=== PATIENT | female | born 1980 | race Hispanic/Latino ===

== ENCOUNTER → 2019-05-02 10:31 | Outpatient (CLI) | payer OTHER, SELFPAY ==
--- NOTE | ~2019-05-02 | US_ITS ---
EXAMINATION: US OB >= 14 weeks Fetus DATE: 05/02/2019 11:43 INDICATION: Second trimester anatomic survey TECHNIQUE: Real-time ultrasound of the pelvis was performed. COMPARISON: None. FINDINGS: There is a single living fetus in vertex presentation. The placenta is anterior and 7.7 cm from the i nternal cervical os. heart rate is 143 beats per minute (bpm). cardiac activity and feta l movement are noted. The amniotic fluid index is subjectively normal. The following anatomy was identified as normal: 4 chamber heart 3 vessel cord cord insertion kidneys urinary bladder stomach spine diaphragm ventricles cisterna magna cerebellum The following biometric data were obtained: Biparietal diameter (BPD): 4.3 cm; head circumference (HC): 16.3 cm; abdominal circumference (AC): 13 .9 cm; femur length (FL): 2.8 cm. These measurements are concordant. Estimated weight is 274 g +/- 41 g, which correlates with the 21st percentile when 09/22/2019 is used as estimated date of delivery. As single measurements, these parameters are each equal to the following estimated gestational ages w ith ranges of +/- 2 standard deviations: BPD: 19 weeks 1 days ( 17 weeks 3 days - 20 weeks 6 days). HC: 19 weeks 0 days ( 17 weeks 4 days - 20 weeks 4 days). AC: 19 weeks 2 days ( 17 weeks 2 days - 21 weeks 3 days). FL: 18 weeks 6 days ( 17 weeks 0 days - 20 weeks 5 days). estimated gestational age based solely on measurements from this exam is 19 weeks 1 days +/- 1 weeks 2 days. IMPRESSION: 1. Single living fetus in vertex presentation. 2. Estimated weight is 274 g +/- 41 g, which correlates with the 21st percentile when 09/22/2019 is used as estimated date of delivery. Reviewed, dictated and finalized at location A. DERING CLERK IMPRESSION: 1. Single living fetus in vertex presentation. 2. Estimated weight is 274 g +/- 41 g, which correlates with the 21st per centile when 09/22/2019 is used as estimated date of delivery.
== END ==
PROVIDERS: Visit Provider Obstetrics & Gynecology Gynecology
DX: Z36.9 Encounter for antenatal screening, unspecified (principal); Z3A.19 19 weeks gestation of pregnancy
CPT/HCPCS: 76805

== ENCOUNTER 2019-06-25 08:50 | Outpatient (RCR) | payer OTHER, SELFPAY ==
[2019-06-25 10:11] LABS: Hematocrit 36.3 % (37.0-47.0); Hemoglobin 12.3 g/dL (12.0-15.0)
[2019-06-25 10:24] LABS: Glucose 1 Hour PP 50gm Dose 93 mg/dL
[2019-06-25 10:56] LABS: Vitamin D 25 Hydroxy 43.1 ng/mL
[2019-06-25 11:04] LABS: HIV 1/2 Ab P24 Ag Result Negative (Negative)
[2019-06-25] MEDS: RHO(D) IMMUNE GLOBULIN 300 MCG SYRINGE IM (15:06)
== END 2019-09-23 23:59 | disposition home or self-care (01) ==
LOC: ANHLAB 08:50
PROVIDERS: Visit Provider Obstetrics & Gynecology Gynecology
DX: Z29.13 Encounter for prophylactic Rho(D) immune globulin (principal); Z11.4 Encounter for screening for human immunodeficiency virus [HIV]; O36.0990 Maternal care for other rhesus isoimmunization, unspecified trimester, not applicable or unspecified; Z3A.00 Weeks of gestation of pregnancy not specified
CPT/HCPCS: 36415; 82306; 82947; 85014; 85018; 85461; 86703; 90384; 96372; G0432; J2790

== ENCOUNTER 2019-09-16 06:35 | Inpatient (IN) | payer OTHER, SELFPAY ==
[2019-09-16] VITALS (76 sets, daily range): BP systolic 109–139; BP diastolic 63–108; PULSE 75–189; RESP 18; TEMP 36.6–37.2; O2SAT 94–100; BMI 28.2
[2019-09-16 07:17] LABS: Basophils Percent Auto 0.4 % (0.2-1.2); Eosinophils Absolute Auto 0.1 K/mm3 (0-0.3); Eosinophils Percent Auto 1.1 % (0-4.4); Hematocrit 38.5 % (37.0-47.0); Hemoglobin 13.2 g/dL (12.0-15.0); Immature Granulocyte Absolute 0.08 K/mm3 (0.00-0.031); Immature Granulocyte Percent A 1.4 % (0-0.5); Lymphocytes Absolute Auto 2.13 K/mm3 (0.9-3.2); Lymphocytes Percent Auto 38.5 % (18.3-44.2); Mean Corpuscular HGB Conc 34.3 g/dl (32-36); Mean Corpuscular Hemoglobin 32.2 pg (26-34); Mean Corpuscular Volume 93.9 fl (80-100); Mean Platelet Volume 11.3 fl (7.4-10.4); Monocytes Absolute Auto 0.4 K/mm3 (0.1-0.6); Monocytes Percent Auto 7.4 % (2.6-8.5); Neutrophils Absolute Auto 2.8 K/mm3 (1.3-6.7); Neutrophils Percent Auto 51.2 % (45.5-73.1); Platelet Count Result 210 k/mm3 (150-375); Red Cell Distribution Width 14.4 % (11.5-14.5); White Blood Count 5.5 K/mm3 (4.5-10.0)
--- NOTE | 2019-09-16 07:20 | LDADM ---
This patient, Kathy Mei, was admitted to Labor/Delivery/Recovery 107 on 09/16/19 at 06:35. Plans for labor, pain management and were discussed with patient. Patient/family oriented to hospital policies and general routines including ID bracelet, bed and alarms, visiting hours, pain management, procedures, bathroom and other care routines, personal items, smoking policy, room service/diet and guest tray routines, security routines, and visiting hours. Patient/Family are encouraged to report perceived risks to care and to ask questions if they do not understand what they are told or what they should do. See OBIX for further documentation.
[2019-09-16] MEDS: LACTATED RINGERS 1,000 ML 125 ML IV CONT (07:24)
[2019-09-16] MEDS: OXYTOCIN 30 UNITS/NS 500 ML 30 UNITS/500 ML BAG IV CONT (07:26)
--- NOTE | 2019-09-16 11:56 | WPDOBADMIT ---
Obstetrics - Admit Note Admission Note: AROM clear fluid /-2 vertex record reviewed. No pertinent additions to the history and/or any subsequent changes in the physical findings that are not consistent with the expected course of the were found. Additions to the history and/or subsequent changes in the physical findings follow. None.
--- NOTE | 2019-09-16 16:26 | PM.OBPRVD ---
OB - Delivery Note Procedure Delivery date: 09/16/19 Procedure: Induction method: AROM and per pitocin protocol Delivery monitor: external FHT and external uterine Route of delivery: Laceration description: Perineal - 2nd Degree Delivery repair: vicryl Estimated blood loss (mL): 210 Anesthesia type: Local Disposition: observation Complications: Patient had two 10-20 sec episodes of back arching and wiht neck flecking and posturing during two consecutive contractions. FHTS monitored during episodes. Resolved spontaneously patient with a long standing history of seizure disorder with most recent seizure in August. Baby Date of : 09/16/19 Time of : 16:06 Weeks of gestation at delivery: 39 gender: Female Weight (pounds): 6 Weight (ounces): 5 presentation: vertex position: Right Occiput Posterior Placenta delivery description: Spontaneous cord vessel description: 3 Vessels and Clamped/Cut score one minute: 8 score five minutes: 9
[2019-09-16] MEDS: OXYTOCIN 30 UNITS/NS 500 ML 30 UNITS/500 ML BAG 125 UNITS IV CONT (16:47)
[2019-09-16] MEDS: WITCH HAZEL 40 PADS 1 PAD TOPICAL (17:16)
[2019-09-16] MEDS: IBUPROFEN 600 MG TABLET PO (17:16)
[2019-09-16] MEDS: BENZOCAINE 20% AER SPR (*SP) 56 GM CAN 1 SPRAY TOPICAL (17:16)
--- NOTE | 2019-09-16 19:14 | PHAR ---
HOME MED VERIFIED = [facility] [id number] LAMOTRIGINE 100 MG BID
--- NOTE | 2019-09-16 20:22 | OBPPTRN ---
09/16/2019 at 1925. Patient transferred to post room #282 via wheelchair. Support person present. Oriented to unit, room, information board, rooming in, admission packet and security measures. Patient verbalizes understanding.
[2019-09-16] MEDS: PHARMACIST COMMUNICATION ORDER 1 EACH XX (21:10)
[2019-09-17 05:27] LABS: Hemoglobin 11.7 g/dL (12.0-15.0)
[2019-09-17 07:40] VITALS: BP 111/78; PULSE 78; RESP 18; TEMP 36.4; O2SAT 97
--- NOTE | 2019-09-17 10:50 | PC.NURSE ---
Mother is able to independently latch infant with appropriate positioning/alignment. Mother states she has used the nipple shield the first few feedings to assist with latch, she has not used it since and has no issue with latching. Mother states she will supplement at times. She denies any nipple discomfort, is feeding as required and waking to feed if needed. Infant has had several effective feedings in the past 24 hours, and is currently meeting outcomes for weight, output, jaundice and feeding frequencies. Mother states she feels confident to continue effective with supplementation at home. Reviewed transition to breast milk, signs of adequate intake, and engorgement/relief. Instructed to call ICP if intake/output less than required. Reviewed regular medications mother is taking. Information provided per Shannen. Reviewed community resources on the [facility] website and in the Mom/Baby guide. Information on outpatient services provided. Mother has no further questions at this time.
[2019-09-17 11:22] LABS: Rapid Plasma Reagin Non-Reactive (NonReactive)
[2019-09-17] MEDS: RHO(D) IMMUNE GLOBULIN 300 MCG SYRINGE IM (11:29)
[2019-09-18 08:33] VITALS: BP 124/81; PULSE 105; RESP 20; TEMP 36.8
[2019-09-21 00:56] LABS: Lamotrigine Lamictal 2.3 mcg/mL (4.0-18.0)
--- NOTE | 2019-10-09 13:02 | PM.OBDSVD ---
DS: Admitting Diagnosis Admitting Diagnosis Admitting Diagnosis: Encounter for supervision of normal , unspecified, third trimester OB - DS: Summary OB Procedures : NST OB Procedures Intrapartum: Spontaneous Vag Delivery OB Procedures: : None Time Spent with Patient Time attestation: Total time spent providing and/or coordinating discharge services: DS: Data Data Completed and Pending Completed studies during hospitalization: Pending at discharge 09/16/19 16:09 Surgical [PTH] Routine Discharge Plan Discharge Attending physician on discharge: Manoj Kelley Discharging Clinician: Manoj Kelley Patient Disposition: Home, Self-Care Activity: may shower Diet: as tolerated Discharge Instructions: Education: Mom and Baby Guide Given to: Mother Follow-Up: Call your delivering provider's office for an appointment to be seen. Mom and baby should come to the [facility] for the follow-up appointment. Appointment Date/Time: September 18, 2019 at 8:00 am What to expect at your follow-up visit: Physical Assessment Call [phone] if you are unable to keep your appointment time. BREAST CARE: 1. Wear a snug supportive bra. 2. For engorgement discomfort: Breast Feeding: A. Apply warm moist washcloths B. Express milk as needed to relieve engorgement C. Wear loose clothing 3. For sore nipples: A. Identify correct latch-on B. Apply warm moist washcloths before and after nursing C. Air dry nipples after nursing D. May apply Lansinoh cream to nipples EPISIOTOMY/PERINEAL CARE: 1. Until bleeding stops, use your maury bottle after urinating 2. Change your pad frequently throughout the day 3. You may take sitz baths several times a day (fill your bathtub with warm water and soak for 20 minutes.) Do NOT bathe in the water 4. No tub baths until seen by your physician - You may shower ACTIVITY: 1. Rest as much as possible. 2. Do not exercise or lift anything heavier than your baby (such as laundry or other children.) 3. Avoid stairs or driving as much as possible. 4. Do not put anything into the vagina. No douching, tampons, or sexual activity until seen by physician. NOTIFY PHYSICIAN IF YOU HAVE ANY QUESTIONS OR IF ANY OF THE FOLLOWING SYMPTOMS OCCUR: 1. If your stitches become red, swollen, or more painful than what you have experienced in the hospital. 2. If your vaginal bleeding becomes foul smelling. 3. If your vaginal bleeding becomes more heavy than a period or if your bleeding changes from pink to bright red. However, you may pass an occasional walnut-sized clot once or twice for the first week . 4. If you experience a sharp, shooting pain in you calves. 5. If you discover a hard, reddened area on your breast or if you experience flu-like symptoms. DIET: 1. Eat regular, well-balanced meals. 2. Drink plenty of fluids daily. If , drink to thirst. Stand Alone Forms: General Discharge Information Follow-up/Referrals: Crissy Tinsley MD [Physician] - Call for Appointment Discharge Medications: Continued PNV [id number] [] 28 mg iron- 800 mcg Tablet 1 tablet PO DAILY RF: 0 lamotrigine 100 mg tablet 100 mg PO BID RF: 0 Date of admission: 09/16/19 06:35 Primary Care Provider: PHYSICIAN,CONSTRUCTION SUPERVISOR/CARPENTER Admitting Provider: Manoj Kelley Discharge Date/Time: 09/17/19 18:45 Attending physician on admission: Manoj Kelley
== END 2019-09-17 18:45 | disposition home or self-care (01) | DRG 805 ==
LOC: ANHOB2 09-17 14:51 → ANHLDR 09-19 07:38 → ANHOB2 09-19 07:38
PROVIDERS: Admitting Provider Obstetrics & Gynecology; Visit Provider Obstetrics & Gynecology
DX: O99.354 Diseases of the nervous system complicating childbirth (principal); K83.1 Obstruction of bile duct; Z37.0 Single live birth; Z3A.39 39 weeks gestation of pregnancy; G40.909 Epilepsy, unspecified, not intractable, without status epilepticus; O26.62 Liver and biliary tract disorders in childbirth; O70.1 Second degree perineal laceration during delivery
CPT/HCPCS: 36415; 80175; 85014; 85018; 85025; 85461; 86592; 86850; 86900; 86901; 88307; 90384; A9270; J2590; J2790; J3475; J7120

== ENCOUNTER 2023-09-14 07:26 | Outpatient (CLI) | payer OTHER, SELFPAY ==
--- NOTE | ~2023-09-14 | MM_ITS ---
EXAMINATION: MM screening rocio BI w paco HISTORY: Screening TECHNIQUE: Craniocaudal and mediolateral oblique 3-D tomosynthesis images were obtained and synthetic 2-D images were generated. CAD analysis was submitted and interpreted. COMPARISON: No prior mammogram is available for comparison at this institution. BREAST PARENCHYMAL COMPOSITION: Not dense: There are scattered areas of fibroglandular density. FINDINGS: There are bilateral breast asymmetries in the central aspect of the right breast and center ed in the upper outer quadrant of the left breast. There are no suspicious calcifications. IMPRESSION: 1. Bilateral breast asymmetries. 2. Additional mammographic views and possible breast ultrasound are recommended. BI-RADS Category 0: Incomplete: Needs additional imaging evaluation. Reviewed, dictated and finalized at location B. IMPRESSION: 1. Bilateral breast asymmetries. 2. Additional mammographic views and possible breast ultrasound are recommended . BI-RADS Category 0: Incomplete: Needs additional imaging evaluation.
== END 2023-09-14 07:27 ==
LOC: MICIMG 07:29
PROVIDERS: PCP Internal Medicine; Visit Provider Advanced Practice Midwife
DX: Z12.31 Encounter for screening mammogram for malignant neoplasm of breast (principal); R92.8 Other abnormal and inconclusive findings on diagnostic imaging of breast
CPT/HCPCS: 77063; 77067

== ENCOUNTER 2023-10-11 08:18 | Outpatient (CLI) | payer OTHER, SELFPAY ==
--- NOTE | ~2023-10-11 | MMUS_ITS ---
EXAMINATION: US breast BI complete, MM diagnostic rocio BI w paco HISTORY: Follow-up breast asymmetries TECHNIQUE: Additional 3-D tomosynthesis images of the breasts were performed and synthetic 2-D images were generated. CAD analysis was submitted and interpreted. High resolution bilateral complete breas t ultrasound was performed. COMPARISON: 09/14/2023 BREAST PARENCHYMAL COMPOSITION: Not dense: There are scattered areas of fibroglandular density. FINDINGS: MAMMOGRAPHIC FINDINGS: Breast asymmetries are less apparent with spot compression views. No discrete mass identified. There are no suspicious calcifications or architectural distortion. ULTRASOUND: Complete bilateral US of all 4 quadrants of the breasts and retroareolar region was reviewed. Right breast: At 10:00, 5 cm from the nipple there is a 5 mm cyst. Near the nipple in the right breas t there is a 5 mm cyst. No suspicious sonographic abnormalities in the right breast. Left breast: At 2:00, 4 cm from the nipple, there is a 6 mm cyst. IMPRESSION: 1. No evidence for malignancy in either breast. Benign findings. 2. Routine yearly screening mammogram and regular clinical breast examination are recommended. BI-RADS Category 2: Benign finding(s). Reviewed, dictated and finalized at location B. IMPRESSION: 1. No evidence for malignancy in either breast. Benign findings. 2. Routine yearly screening mammogram and regular clinical breast examination a re recommended. BI-RADS Category 2: Benign finding(s).
== END 2023-10-11 08:19 ==
LOC: MICIMG 08:19
PROVIDERS: PCP Internal Medicine; Visit Provider Obstetrics & Gynecology Gynecology
DX: R92.8 Other abnormal and inconclusive findings on diagnostic imaging of breast (principal)
CPT/HCPCS: 76641; 77062; 77066; G0279

== ENCOUNTER 2023-10-26 12:38 | Outpatient (CLI) | payer OTHER, SELFPAY ==
--- NOTE | ~2023-10-26 | CT_ITS ---
EXAMINATION: CT abdomen pelvis wo con DATE: 10/26/2023 13:13 INDICATION: Periumbilical abdominal pain. TECHNIQUE: Computed tomography (CT) of the abdomen and pelvis was performed without intravenous contr ast. Automated exposure control and iterative reconstruction technique were employed. The dose-length product was 224.64 mGy-cm. COMPARISON: None. FINDINGS: The visualized portions of the lung bases are clear without pneumonia or pleural effusion. The heart is normal. No pericardial effusion. The liver and spleen are normal. There is a gallstone i n the gallbladder, which is normal in size. The pancreas, adrenal glands, and kidneys are normal. The re are no dilated loops of bowel. The appendix is normal. There is diastasis of the rectus abdominis muscles. There are no pathologically enlarged lymph nodes. There is no free intraperitoneal fluid. Th ere is mild lumbar spondylosis. IMPRESSION: 1. Cholelithiasis. No evidence of acute cholecystitis. 2. Diastasis of the rectus abdominis muscles. Reviewed, dictated and finalized at location A.
== END 2023-10-26 12:39 ==
LOC: MICIMG 12:39
PROVIDERS: PCP Internal Medicine; Visit Provider Internal Medicine
DX: R10.33 Periumbilical pain (principal); K80.20 Calculus of gallbladder without cholecystitis without obstruction
CPT/HCPCS: 74176